=== PATIENT | female | born 1980 | race Caucasian/White ===

== ENCOUNTER 2020-02-08 17:50 | Emergency (ER) | payer MEDICAID, SELFPAY ==
[2020-02-08 17:51] VITALS: BP 129/72; PULSE 77; RESP 18; TEMP 36.3; O2SAT 98; BMI 37.3
[2020-02-08 18:14] VITALS: O2SAT 98
--- NOTE | 2020-02-08 19:10 | RAD_ITS ---
STUDY: X-RAY CHEST REASON FOR EXAM: Female, 39 years old. COUGH, CONGESTION TECHNIQUE: Single AP portable view of the chest. COMPARISON: 09/17/2012. FINDINGS: Normal lung volumes. No infiltrates. Possible 2 cm nodule in the right apex versus overlying bone density. Recommend CT. Left lung is clear.. Normal size heart. Normal mediastinum and dana. Normal visualized pulmonary arteries. Normal visualized aortic arch and descending thoracic aorta. Normal visualized thoracic spine. Normal visualized ribs, clavicles, and shoulders. There is no demonstrated abnormality of the visualized soft tissue structures of the upper abdomen. RAD/Chest 1 View (Portable) IMPRESSION: Possible 2 cm nodule in the right apex. CT recommended. Electronically Signed: Aaron Scales MD at 19:38 EDT , Service support ,
--- NOTE | 2020-02-08 20:09 | ED.DCSUM_ITS ---
History of Present Illness Chief Complaint: Cough Informant: Patient Onset: Weeks - 2 Context: Gradual Onset Timing: Continuous Quality: [employer] along w/ some wheezing Location: nasal congestion, chest wheezing Current Severity: Moderate Maximum Severity: Moderate Worsened by: - - nothing Relieved by: - - nothing Associated Symptoms: Nasal Congestion, Nonproductive cough, - - decreased hearing both ears w/ little pain. Negative for: Headache, Sinus Pressure, Nausea, Vomiting, Shortness of Breath, Chest Pain Narrative: No fevers. No known contact with other sick persons including coronavirus- infected persons. Patient presents during the national coronavirus emergency declaration. States she has been wheezing, but does not have a history of asthma. She denies any swelling in her legs or orthopnea. No myalgias or chills/fevers. Past Medical History - Allergies and Home Meds Allergies/Adverse Reactions: Allergies No Known Drug Allergies Adverse Reaction (Unknown, Verified 02/08/20 17:51) Unknown Primary Care Physician: Mart Machado MD [Primary Care Provider] - Past Medical History: None Smoking Status: Current some day smoker - 1 pack/day Drugs: None Review of Systems General: Denies: Chills, Fever, Sweats Eyes: Denies: Visual changes - bilaterally, Diplopia ENT: Reports: - - Bilateral decreased hearing/muffled. Denies: Rhinorrhea, Sore throat Cardiovascular: Denies: Chest pain, Palpitations Respiratory: Reports: Cough. Denies: Dyspnea, Sputum, Dyspnea on exertion Gastrointestinal: Denies: Abdominal pain, Nausea, Vomiting, Diarrhea, Melena, Hematochezia Genitourinary: Denies: Dysuria, Hematuria, Frequency Musculoskeletal: Denies: Myalgias, Neck pain, Back pain, Swelling, Extremity Pain Skin: Denies: Rash, Wounds Neurological: Denies: Headache, Weakness, Numbness Physical Exam Vital Signs/Narrative: Vital Signs Temp Pulse Resp BP Pulse Ox 02/08/20 17:51 97.4 F L 77 18 129/72 H 98 Inital Vital Signs reviewed: Yes General: Well nourished, Well developed, - - NAD, conversive in full sentences Head: Normocephalic, Atraumatic. Negative for: Sinus Tenderness Eyes: Perrl, EOMI Ears: Normal external canal, - - Right TM erythematous with bulging TM and altered landmarks/light reflex. Left TM mildly erythematous, possible effusion but normal light reflex.. Negative for: Pain with Movement of Right Tragus, Pain with Movement of Left Tragus, Right Mastoid Tenderness, Left Mastoid Tenderness Nose: Normal Inspection, No Rhinorrhea. Negative for: Purulent Drainage Mouth/Throat: Normal Inspection, No Posterior Erythema Neck: Supple, Nontender, No Lymphadenopathy, No Meningismus Cardiovascular: Regular rate, Regular rhythm, No murmurs Respiratory: No distress, Chest nontender, Wheezing - Expiratory, mild. Negative for: Rales, Rhonchi Abdomen: Soft, Nontender, Nondistended, Normal bowel sounds Back: Nontender, Normal Inspection Extremities: Nontender, No edema. Negative for: Calf Tenderness Skin: Normal color, No rash, No Trauma Neurological: Alert, Oriented x3, Cranial nerves II-XII grossly intact, Normal Strength, Normal Sensation, Normal Gait Psychological: Normal affect, Normal Mood Diagnostic/Tx/Re-eval Clinical Impression(s) from Imaging Studies Chest X-Ray 02/08/20 19:10 IMPRESSION: Possible 2 cm nodule in the right apex. CT recommended. Electronically Signed: Aaron Scales MD at 19:38 EDT , Service support , - Medical Decision Making Patient is not having a lot of pain in the ears, but I think it would be reasonable to cover her for otitis media especially on the right. As I discussed with her, her other symptoms are consistent with viral bronchitis with wheezing. I will prescribe her an albuterol inhaler, her oxygen levels are normal, and I discussed that I would not be surprised if the antibiotic does not solve her cough and wheezing. I discussed with her concerns about the nodule in her right upper lobe and the fact that she is a heavy smoker. We discussed the possibility of cancer here, and also the possibility of noncancerous nodules or granulomas. Regardless she has a PCP and needs to follow-up for an outpatient CT that does not need to be done emergently. Discussed all this with her, she understands and will call for follow-up appointment after the weekend. ED Disposition - Plan for ED Patient: Disposition: Home or Assisted Living Diagnosis: Acute wheezy bronchitis, Pulmonary nodule 1 cm or greater in diameter, Right otitis media Instructions: ED Nodule Solitary Pulmonary, ED Otitis Media Antibiotic Treatment Adult, ED Bronchitis Asthmatic Prescriptions: Amox/Clavulanate Tablet [Augmentin Tablet] 875 mg PO Q12H #20 tab Prescription Printed Albuterol Inhaler [Ventolin Hfa] 1 - 2 puff INHALATION Q4H PRN PRN #1 inhaler PRN Reason: Wheezing Prescription Printed Referrals: Mart Machado MD [Primary Care Provider] - As soon as possible (Call for appointment)
[2020-02-08 20:25] VITALS: BP 121/75; PULSE 66; RESP 20; O2SAT 97
== END 2020-02-08 20:25 | disposition home or self-care (01) ==
PROVIDERS: Emergency Provider Emergency Medicine; PCP Family Medicine
DX: J20.9 Acute bronchitis, unspecified (principal); R91.1 Solitary pulmonary nodule; H66.91 Otitis media, unspecified, right ear; F17.200 Nicotine dependence, unspecified, uncomplicated
CPT/HCPCS: 71045; 99282

== ENCOUNTER 2021-01-14 16:11 | Emergency (ER) | payer MEDICAID, SELFPAY ==
[2021-01-14 16:12] VITALS: BP 127/77; PULSE 89; RESP 16; TEMP 36.3; O2SAT 98; BMI 37.9
--- NOTE | 2021-01-14 16:30 | RAD_ITS ---
INDICATION: injury EXAMINATION/TECHNIQUE: X-RAY - LEFT XR Elbow Min 3 Views COMPARISON: None. FINDINGS: SOFT TISSUES: No soft tissue swelling or gas. No radiopaque foreign body. BONES/JOINTS: There is no displacement of the anterior or posterior fat pads. No acute fracture or subluxation. Normal alignment. Preservation of the joint space. No sclerotic or destructive changes observed. RAD/Elbow min 3 Views IMPRESSION: Negative. Electronically Signed: Thierno Lee MD at 17:08 EDT Tel , Service support ,
--- NOTE | 2021-01-14 17:04 | EX.ED.UPPERE ---
HPI History of Present Illness Chief Complaint: Upper Extremity Injury Informant: patient Occured/Mechanism Mechanism/Context: Yes injury Onset/Context/Timing Onset: Today Context: Sudden Onset Timing: Continuous Quality of Pain: Aching Location: L elbow Current Severity: Mild Maximum Severity: Moderate Worsened by: Movement Relieved by: Remaining still Associated Symptoms Associated Symptoms: Negative for Parasthesia, Weakness and Loss of Funtion Narrative Narrative: Patient was smoking in her garage and states that her dog accidentally caused her left arm to go and what she describes as a forced external rotation injury, she had a sudden pop and pain at the lateral aspect of her left elbow. No shoulder or wrist pain. [id number]. PFSH PFSH no medical history Home Medications albuterol sulfate 1 - 2 puff INHALATION Q4H PRN PRN #1 inhaler 02/08/20 [Rx Last Taken Unknown] amoxicillin-pot clavulanate 875 mg PO Q12H #20 tab 02/08/20 [Rx Last Taken Unknown] Allergy/AdvReac Type Severity Reaction Status Date / Time No Known Drug Allergies AdvReac Unknown Unknown Verified 02/08/20 17:51 Social History Smoking Status: Current some day smoker (1 pack/day) ROS ROS ED Constitutional Constitutional ED: Denies chills or fever(s) Musculoskeletal Musculoskeletal: Reports extremity pain; Denies neck pain Integumentary Denies Abrasions, rash or wounds Neurologic Neurologic: Denies paresthesias or weakness EXAM Physical Exam Const Vital Signs: 01/14/21 16:12 Temperature 97.4 F L Temperature Source Temporal Pulse Rate 89 Respiratory Rate 16 Blood Pressure 127/77 H Blood Pressure Mean 93 Pulse Ox 98 Oxygen Delivery Method Room Air Positive well nourished and well developed General Appearance ED: well developed and NAD Neck full ROM and supple Back/Spine normal ROM and normal to inspection Extremity normal to inspection and full ROM Extremity Narrative: Left elbow: Mild tender to palpation left radial head. Able to pronate and supinate fully, but extreme supination increases pain. No other areas of bony tenderness in the elbow. No deformity. Full flexion and extension. 2+/4 radial pulse. Neuro oriented x3, no focal motor deficits and no sensory deficits noted Sensorium / Orientation: alert Psych mental status grossly normal and thought process normal Skin no wounds Rashes: no rashes MDM MDM MDM Narrative Medical decision making narrative: Three-view x-ray series of the left elbow was obtained on my interpretation are normal. Radiology confirms. Consistent with a sprain left radial head ligament. Supportive care advised, I do not think she needs a sling, she is not in a lot of pain and is moving very well, she was given some anti-inflammatories and outpatient follow-up as needed if not improving in 1 to 2 weeks. Radiography Diagnostic Testing: Clinical Impression(s) from Imaging Studies Elbow X-Ray 01/14/21 16:30 IMPRESSION: Negative. Electronically Signed: Thierno Lee MD at 17:08 EDT Tel , Service support , Discharge Plan Triage Chief Complaint: Upper Extremity Injury ED Provider: Brandyn Reeves Dx/Rx/DC Orders Clinical Impression: Sprain of left elbow Instructions: ED Sprain, Elbow Prescriptions: No Action albuterol sulfate 1 INHALER inhaler 1 - 2 puff inhalation Q4H PRN PRN (Reason: Wheezing) Qty: 1 RF: 0 amoxicillin-pot clavulanate 875 MG tablet 875 mg PO Q12H Qty: 20 RF: 0 Primary Care Provider: Mart Machado Referrals: Mart Machado MD [Primary Care Provider] - 1-2 Weeks (If not improving, or may follow-up with [facility]) Activity Restrictions/Additional Instructions: May take ibuprofen as needed, and may apply ice to affected area if resting. Disposition Disposition: Home, self care
[2021-01-14 17:17] VITALS: RESP 18
[2021-01-14] MEDS: Ibuprofen 600 MG Tablet PO (17:20)
== END 2021-01-14 17:23 | disposition home or self-care (01) ==
PROVIDERS: Emergency Provider Emergency Medicine; PCP Family Medicine
DX: S53.402A Unspecified sprain of left elbow, initial encounter (principal); X50.1XXA Overexertion from prolonged static or awkward postures, initial encounter; Y93.9 Activity, unspecified; Y92.008 Other place in unspecified non-institutional (private) residence as the place of occurrence of the external cause; F17.200 Nicotine dependence, unspecified, uncomplicated
CPT/HCPCS: 73080; 99283